=== PATIENT | female | born 1955 | race Caucasian/White ===

== ENCOUNTER 2024-01-17 19:48 | Inpatient (IN) | payer MEDICARE, SELFPAY ==
[2024-01-16 12:55] VITALS: BP 152/76
--- NOTE | 2024-01-16 14:06 | ED.GENMED ---
History of Present Illness
General
Chief Complaint: Skin Problem
Source: patient
Time Seen by Provider: 01/16/24 13:24
Travel History
Have you had any contact with someone who has COVID-19?: No
Do you have any symptoms of coronavirus? Fever > 100 degrees, chills, cough, shortness of breath, sore throat, loss of taste or smell, muscle aches, or headache?: No
History of Present Illness
History of Present Illness:
68-year-old female with past medical history of GERD presenting the emergency department for evaluation of left hand dog bite that occurred on Tuesday evening. Patient states this was her family dog who is up-to-date on vaccinations. Patient's
tetanus vaccine is up-to-date as well. She went to urgent care on Tuesday morning and was started on oral clindamycin. She saw her primary care provider today and was told that due to the worsening redness and swelling she should come to the ER for
IV antibiotics and admission. Patient denies any fevers, chills, rigors. She does note that despite 3 doses of the antibiotic she notes progressively worsening erythema and tracking up into her forearm. Patients tetanus is UTD
Past History
Past History
ED Past Medical History: GERD and Hyperthyroidism
ED Past Surgical History: Orthopedic and Other
Social History
Tobacco: Non-smoker
Alcohol: None
Drug: None
Personal:
Living: with family
Review of Systems
Review of Systems
All Other Systems: ROS reviewed and negative except as documented in HPI and ROS
Phy Exam
Physical Exam
Physical Exam:
GENERAL: Alert , in no apparent distress
EYE: conjunctiva clear
Head: Normocephalic atraumatic
NECK: Supple,
ENT: mmm.
LUNGS: no acute respiratory distress
NEUROLOGICAL: Alert and oriented
SKIN: Warm and dry, moderate left hand erythema that extends along the dorsal and palmar aspect of the hand which extends all the way into the mid forearm. Small puncture wounds on the dorsal aspect of the hand noted. No purulence. No crepitus.
MUSCULOSKELETAL: well perfused.
PSYCH: Normal and appropriate interaction.
Scores
Heart Failure Risk
Heart Failure Risk Score: Not Applicable
Heart Score for Chest Pain Patients
STEMI patient?: Not applicable
Withdrawal Assessment of Alcohol
Withdrawal Assessment Completed?: Not applicable
Course
Orders/Labs/Results
Orders:
Orders
01/16/24 13:30
CR Hand - Left Min 3 Views Urgent
Comment:
Reason For Exam: dog bite, infection
01/16/24 14:00
Complete Blood Count/With Diff Urgent
Comprehensive Metabolic Panel Urgent
Lactate Level [Lactic Acid] Q4H
Blood Culture Q30M
CYNDY Source: Blood/Venous
Specimen Description:
Blood Culture Q30M
CYNDY Source: Blood/Venous
Specimen Description:
01/16/24 14:18
Ampicillin/Sulbactam 3 G [Unasyn] 3 gm 0.9% Sodium Chloride 100 ml [Nss] 100 ml IV NOW
01/16/24 16:14
Admit/Transfer Patient As Directed
Co-Sign Provider:
Level of Care: Observation services
Assign to:: Medical/Surgical
Physician / Group: Dr. Syed Souza/Hospitalists
Diagnosis: Left Hand Cellulitis/Animal Bite
01/16/24 16:17
Code Status As Directed
Resuscitation Status: Full Code
01/16/24 16:19
MRSA Screen Routine
CYNDY Source: Nose
Specimen Description:
01/16/24 16:22
Neurovascular Checks As Directed
Location: All extremities
Frequency: q4h
01/16/24 17:15
Lactate Level [Lactic Acid] Q4H
01/16/24 18:00
Ampicillin/Sulbactam 3 G [Unasyn] 3 gm 0.9% Sodium Chloride 100 ml [Nss] 100 ml IV Q6H
Abnormal Lab Results
01/16/24
14:00
RBC 3.80 L 10^6/uL
(4.20-5.40)
Hct 35.0 L %
(37.0-47.0)
MCH 31.8 H pg
(27.0-31.0)
Absolute Lymphs (auto) 0.8 L 10^3/uL
(1.2-3.4)
Absolute Monos (auto) 0.7 H 10^3/uL
(0.1-0.6)
Neutrophils % 78.5 H %
(42.2-75.2)
Lymphocytes % 10.7 L %
(20.5-51.1)
BUN 25 H mg/dl
(7-17)
Glucose 104 H mg/dl
(70-99)
Alkaline Phosphatase 130 H U/L
(38-126)
01/16/24 14:00
01/16/24 14:00
Vital Signs
Initial and Last Documented VS:
Initial Vital Signs
Temp Pulse Resp BP Pulse Ox
99.0 F 74 16 152/76 98
01/16/24 12:55 01/16/24 12:55 01/16/24 12:55 01/16/24 12:55 01/16/24 12:55
Last Documented Vital Signs
Temp Pulse Resp BP Pulse Ox
99.0 F 74 16 152/76 98
01/16/24 12:55 01/16/24 12:55 01/16/24 12:55 01/16/24 12:55 01/16/24 12:55
MDM/Problems Addressed
Differential Diagnosis Includes:
Cellulitis secondary to dog bite, necrotizing fasciitis, abscess
MDM/Problems Addressed:
68-year-old female presenting the emergency department for evaluation of left hand infection secondary to dog bite from 2 days ago. Patient had been on clindamycin but not experiencing any improvement and states the erythema and pain are ascending
the left arm. Will start lab work, x-ray imaging and initiate IV Unasyn. Plan for admission. Patient may require ID consult.
*Radiology
Radiology exam reviewed: preliminary read by ED provider (No acute fracture or soft tissue gas)
*Pulse Oximetry
Patient hypoxic: no
*Critical Care Note
Total Time (30-74mins, 75-104mins- exclusive of procedures): Not Applicable
Patient Management
Discussion with other providers: Hospitalist
Escalation/DeEscalation of care consider admission/obs:
Hospitalist team is aware and accepts for continued evaluation and treatment of cellulitis secondary to dog bite
ED Attending Note
-
Portions of this chart may have been created with voice recognition software.� Occasional wrong word or��sound alike� substitutions may have occurred due to the inherent limitations of voice recognition software.
Discharge Plan
Departure
Patient Disposition: Admit
Date of Disposition: 01/16/24
Time of Disposition: 14:32
Presentation/result/management discussed w/ accepting MD/DO: Hospitalist
Discharge Problem:
Cellulitis of hand, left, Dog bite
[2024-01-16 14:13] LABS: % Basophils 0.4 % (0-2); % Eosinophils 1.8 % (0-6); % Immature Granulocytes 0.1 % (0-0.5); % Lymphocytes 10.7 % (20.5-51.1); % Monocytes 8.5 % (1.7-9.3); % Neutrophils 78.5 % (42.2-75.2); Absolute Eosinophils 0.1 10^3/uL (0-0.7); Absolute Lymphocytes 0.8 10^3/uL (1.2-3.4); Absolute Monocytes 0.7 10^3/uL (0.1-0.6); Hemoglobin 12.1 g/dL (12.0-16.0); Mean Corp Hgb Conc. 34.6 g/dL (33.0-37.0); Mean Corpuscular Hgb 31.8 pg (27.0-31.0); Mean Corpuscular Volume 92.1 fL (81.0-99.0); Mean Platelet Volume 10.2 fL (7.4-10.4); Nucleated Red Blood Cells % 0 %; Platelet Count 217 10^3/uL (130-400); Red Cell Dist. Width 13.3 % (11.5-14.5); White Blood Cell Count 7.7 10^3/uL (4.8-10.8)
[2024-01-16 14:29] LABS: ALT (SGPT) 29 U/L (0-35); AST (SGOT) 29 U/L (14-36); Albumin 4.4 g/dl (3.5-5.0); Alkaline Phosphatase 130 U/L (38-126); Blood Urea Nitrogen 25 mg/dl (7-17); Calcium 9.3 mg/dl (8.4-10.2); Carbon Dioxide 27 mmol/L (22-30); Chloride 101 mmol/L (98-107); Glucose 104 mg/dl (70-99); Potassium 4.2 mmol/L (3.5-5.1); Sodium 135 mmol/L (135-145); Total Bilirubin 0.5 mg/dl (0.2-1.3); Total Protein 7.1 g/dl (6.3-8.2); eGFR > 60.00
[2024-01-16 14:31] LABS: Lactic Acid 0.7 mmol/L (0.7-2.0)
[2024-01-16] MEDS: UNASYN IV ×2 (14:41→19:38)
[2024-01-16 16:39] VITALS: BMI 21.4
--- NOTE | 2024-01-16 16:50 | HPS.HSE ---
Family Physician
-
Family Physician: Guy Sears
Chief Complaint
-
Left Hand and Forearm Redness, Pain and Swelling
History of Present Illness
68 y/o female with past medical history of lung cancer (cured with surgery), Bronson's Disease, Raynaud's Phenomenon, Osteoarthritis and Osteoporosis, GERD presented with left hand worsening redness, pain and swelling. Patient said she got bit on
her left hand and left lower leg by her dog (the dog as confirmed by patient and her family is a family dog and that dog has been fully vaccinated according to them), very early Tuesday morning. She got a prescription for Clindamycin and noticed
possible improvement, but then symptoms got a whole lot worse and her PCP sent her to the ER. She denied any numbness and tingling to her left hand, but did say she has a hard time squeezing her fingers together. She denied any fever or any other
symptoms.
Medical History
Past Medical History
Past Medical History: Reports Other (As per HPI above)
Past Surgical History: Reports Orthopedic and Other (Lung Surgery)
Social History
Tobacco: Non-smoker
Alcohol: None
Drug: None
Family History
Family History: Not pertinent
Allergies / Home Medications
Allergies reflects when Allergies were last updated in [employer].
Home Medications with original date entered in [employer]
Allergy/Medication List:
Allergies
Allergy/AdvReac Type Severity Reaction Status Date / Time
duloxetine Allergy Unknown Verified 01/16/24 12:58
Home Medications
abaloparatide (Tymlos) 0 mcg SC HS 01/16/24
acyclovir 400 mg tablet 400 mg PO DAILY 01/16/24
bupropion HCl 300 mg 24 hr tablet, extended release 300 mg PO DAILY 01/16/24
cholecalciferol (vitamin D3) 50 mcg (2,000 unit) tablet (Vitamin D3) 50 mcg PO DAILY 01/16/24
clindamycin HCl 300 mg capsule 300 mg PO TID 01/16/24
estradiol 10 mcg vaginal tablet (Vagifem) 10 mcg vaginal .TWICE A WEEK 01/16/24
famotidine 20 mg tablet 40 mg PO HS 01/16/24
ibuprofen 200 mg tablet (Advil) 400 mg PO Q6HPRN PRN mild pain 01/16/24
latanoprost 0.005 % eye drops 1 drp BOTH EYES HS 01/16/24
levothyroxine 100 mcg tablet 100 mcg PO DAILY 01/16/24
vitamin B12 1,000 mcg-folic acid 400 mcg sublingual lozenge 1 erinn sublingual DAILY 01/16/24
Review of Systems
-
A 12 point ROS was completed and negative except as noted: Yes
Physical Exam
Vital Signs
Vital Signs
Temp Pulse Resp BP Pulse Ox
99.0 F 74 16 152/76 98
01/16/24 12:55 01/16/24 12:55 01/16/24 12:55 01/16/24 12:55 01/16/24 12:55
Physical Exam
General: No Apparent Distress
HEENT: NormoCephalic and Moist mucous membranes
Respiratory: Clear
Cardiac: S1/S2 and Regular Rhythm
GI: Soft, Non Tender and Normal Bowel Sounds
Musculoskeletal: No Cyanosis and Other (LUE: LT hand and LT forearm erythema and significant tenderness, no crepitus. LT digits decreased ability to flexion and extension due to pain. LT radial pulse 2+. LLE extremity with animal bite wounds.)
Skin: Warm
Neuro: Awake, Alert and AO x 3
Psych: Calm and Intact Judgment/Insight
Laboratory Results
-
01/16/24 14:00
01/16/24 14:00
Laboratory Results
Lactic Acid 0.7 mmol/L (0.7-2.0) 01/16/24 14:00
Total Bilirubin 0.5 mg/dl (0.2-1.3) 01/16/24 14:00
AST 29 U/L (14-36) 01/16/24 14:00
ALT 29 U/L (0-35) 01/16/24 14:00
Alkaline Phosphatase 130 U/L (38-126) H 01/16/24 14:00
Impression/Plan
-
Assessment/Plan
Left Upper Extremity (left hand and left forearm) Erythema and Tenderness
-Started PO antibiotics outpatient but symptoms got worse
-Continue IV Unasyn
-Follow blood cultures and MRSA results
-Elevate LUE above the heart
-Per ER Provider and patient and her family, patient's Tetanus shots are all up to date
-Continue Neurovascular Checks
History of lung cancer (cured with surgery)/groundglass lung lesion
Bronson's Disease
Raynaud's Phenomenon
Osteoarthritis
Osteoporosis
GERD - continue Famotidine
DVT PPx: Lovenox
Code Status: Full Code
[2024-01-16 17:07] VITALS: BMI 20.3
[2024-01-16 17:08] VITALS: BP 144/71
--- NOTE | 2024-01-16 18:04 | W.PN.UPDATE ---
Update Note
Progress Note Update
Pt seen and chart reviewed
Clinically I suspect cellulitis of the L hand only
I recommend elevation and IV antibx
Will follow with Hosp Service
thanks
GGMD
[2024-01-16] MEDS: LOVENOX 40 MG SC (18:13)
[2024-01-16] MEDS: MOTRIN 400 MG PO (19:38)
[2024-01-16 20:16] LABS: Lactic Acid 1.2 mmol/L (0.7-2.0)
[2024-01-16] MEDS: NON-FORMULARY ITEM 80 MCG SC (21:15)
[2024-01-16] MEDS: XALATAN OPHTHALMIC SOLUTION 1 DROP BOTH EYES (21:18)
[2024-01-16] MEDS: PEPCID 40 MG PO (21:18)
[2024-01-16 23:00] VITALS: BP 130/67
[2024-01-17] MEDS: UNASYN IV ×4 (01:00→20:03)
[2024-01-17 05:39] LABS: % Basophils 0.8 % (0-2); % Eosinophils 4.6 % (0-6); % Immature Granulocytes 0.2 % (0-0.5); % Lymphocytes 16.1 % (20.5-51.1); % Monocytes 10.6 % (1.7-9.3); % Neutrophils 67.7 % (42.2-75.2); Absolute Eosinophils 0.2 10^3/uL (0-0.7); Absolute Lymphocytes 0.8 10^3/uL (1.2-3.4); Absolute Monocytes 0.5 10^3/uL (0.1-0.6); Absolute Neutrophils 3.4 10^3/uL (1.4-6.5); Hematocrit 34.2 % (37.0-47.0); Mean Corp Hgb Conc. 35.1 g/dL (33.0-37.0); Mean Corpuscular Hgb 32.3 pg (27.0-31.0); Mean Corpuscular Volume 91.9 fL (81.0-99.0); Mean Platelet Volume 10.6 fL (7.4-10.4); Nucleated Red Blood Cells % 0 %; Platelet Count 202 10^3/uL (130-400); Red Blood Cell Count 3.72 10^6/uL (4.20-5.40); Red Cell Dist. Width 13.4 % (11.5-14.5)
[2024-01-17] MEDS: SYNTHROID 100 MCG PO (05:45)
[2024-01-17 06:25] LABS: Blood Urea Nitrogen 21 mg/dl (7-17); Calcium 9.6 mg/dl (8.4-10.2); Carbon Dioxide 23 mmol/L (22-30); Chloride 106 mmol/L (98-107); Estimated Creatinine Clearance 48 ml/min; Glucose 98 mg/dl (70-99); Sodium 137 mmol/L (135-145); eGFR > 60.00
[2024-01-17] MEDS: VITAMIN D3 (cholecalciferol) 50 MCG PO (07:24)
[2024-01-17] MEDS: ZOVIRAX 400 MG PO (07:24)
[2024-01-17] MEDS: WELLBUTRIN XL (24 hour extended release) 300 MG PO (07:24)
[2024-01-17] MEDS: VITAMIN B-12 1000 MCG PO (07:24)
[2024-01-17] MEDS: FOLVITE 0.400000000000000022 MG PO (07:24)
[2024-01-17 07:37] VITALS: BP 101/63
--- NOTE | 2024-01-17 09:30 | WOUNDNOTE ---
L PALM AND LOWER ARM
--- NOTE | 2024-01-17 09:31 | WOUNDNOTE ---
L DORSAL HAND AND LOWER ARM
--- NOTE | 2024-01-17 09:38 | WOUNDNOTE ---
MELONY RN note: Patient admitted with cellulitis of L hand from dog bite.
See H&P for complete history.
PMH:Bronson's thyroiditis, hip replacements knee replacement, lung and back surgery.
Wound Location and type/assessment: Patient admitted with: L hand and arm cellulitis and swelling from dog bite on dorsal hand. Bite shepard visible but no open wounds, skin warm. + radial pulse palpable. L lower leg with few bite shepard no swelling
or redness. X ray negative for fracture, reviewed ortho note. I&D on consult.
Appetite: Good.
Pressure redistribution devices in place: Accumax, Ad omari, L arm elevated.
Plan: Pictures taken, no wounds to dress. Will sign off unless needed.
[2024-01-17] MEDS: MOTRIN 400 MG PO ×2 (11:03→21:08)
--- NOTE | 2024-01-17 14:33 | CON.ID ---
Consultation
-
Date/Time Consultation Requested: January 16, 2024 1626
Date/Time Consultation Performed: January 17, 2024 1435
Requesting Provider: Dr. Syed Souza
Performing Provider: Dr. Nichol Schmidt
Reason for Consultation: Dog bite cellulitis
Chief Complaint / Past History
Chief Complaint
Dog bite
History of Present Illness
68-year-old female with remote history of lung cancer status resection on remission, Bronson's disease who accidentally stepped on her pet dog's paw and her dog bit her left hand and leg. This occurred on January 14. She went to urgent care
and was prescribed clindamycin for which she took 3 doses. However the redness from her pain continued to progress up to her forearm. Upon the recommendation of her PCP, she came to the ER yesterday. She is currently on Unasyn. She reports that
the redness is receding from her forearm. Swelling is better. She can now move her fingers better. She is up-to-date with her tetanus shot within the past 10 years. Her dog is up-to-date with his vaccines.
Past History
Additional Past Medical History:
Bronson's disease
Raynaud's
Osteoporosis
History of lung cancer s/p resection, on remission
Allergy History:
duloxetine Allergy (Verified 01/16/24 12:58)
Unknown
Medications Reviewed: Yes
Current Antibiotics:
Unasyn
Social History
Tobacco: Non-Smoker
Alcohol: None
Drug: None
Personal:
Family History
Family History: Not Pertinent
Review of Systems
Review of Systems
General: Negative Fever, Chills or Change in Appetite
HEENT: Negative Sinus Problems or Headache
Respiratory: Negative Dyspnea or Cough
Gasteroenterology: Other (no diarrhea); Negative Nausea or Vomiting
Genital / Urological: Negative Dysuria or Flank Pain
Endocrine: Negative Weakness
All systems: All other systems were reviewed and were negative
Vital Signs
Temp Pulse Resp BP Pulse Ox
98 F 66 16 101/63 98
01/17/24 07:37 01/17/24 07:37 01/17/24 07:37 01/17/24 07:37 01/17/24 07:37
Physical Exam
Physical Exam
Constitutional: No Acute Distress and Comfortable
Eyes: No Conjunctival Hemorrhage and Sclera Anicteric
Cardiovascular: Regular Rate and S1/S2
Pulmonary: Clear
Gastrointestinal: Soft, Non Tender, Non Distended and Normal Bowel Sounds
Extremities: Negative Edema (LE)
Wound: Other (Left hand: + puncture wounds radial side with erythema/edema dorsum of hand extending past wrist, streaky cellulitis on volar side of forearm. ROM at wrist and fingers intact. )
Neurological: AO x 3
Lab / Diagnostic Study Results
01/17/24 05:08
01/17/24 05:08
Abs Immat Gran (auto) 0.0 10^3/uL (0-0.05) 01/17/24 05:08
Absolute Neuts (auto) 3.4 10^3/uL (1.4-6.5) 01/17/24 05:08
Absolute Lymphs (auto) 0.8 10^3/uL (1.2-3.4) L 01/17/24 05:08
Absolute Monos (auto) 0.5 10^3/uL (0.1-0.6) 01/17/24 05:08
Absolute Basos (auto) 0.0 10^3/uL (0-0.2) 01/17/24 05:08
Immature Gran % 0.2 % (0-0.5) 01/17/24 05:08
Neutrophils % 67.7 % (42.2-75.2) 01/17/24 05:08
Lymphocytes % 16.1 % (20.5-51.1) L 01/17/24 05:08
Monocytes % 10.6 % (1.7-9.3) H 01/17/24 05:08
Eosinophils % 4.6 % (0-6) 01/17/24 05:08
Basophils % 0.8 % (0-2) 01/17/24 05:08
Lactic Acid 1.2 mmol/L (0.7-2.0) 01/16/24 19:54
Microbiology Results
Micro:
01/16/24 14:00 Blood Culture - Preliminary
Blood/Venous No Growth in 24 hours- Final report to follow
01/16/24 14:00 Blood Culture - Preliminary
Blood/Venous No Growth in 24 hours- Final report to follow
01/16/24 17:11 MRSA Screen - Pending
Nose
01/16/2024 left hand x-ray: Moderate first carpometacarpal joint osteoarthritis.
Assessment / Plan
# LUE cellulitis due to dog bite.
- up-to-date with tetanus vaccine.
-cellulitis improving on Unasyn
-At time of discharge, transition to Augmentin 875mg po bid through 01/25/24
--- NOTE | 2024-01-17 14:50 | W.PN.HOSP.TC ---
Today's Communication/Plan
-
Continue antibiotics
Patient's symptoms are improving
Appreciated Infectious Disease and Ortho consult recommendations
Assessment / Plan
Assessment / Plan
Physical Exam
General: No Apparent Distress
HEENT: Normocephalic and Moist mucous membranes
Respiratory: Clear
Cardiac: S1/S2 and Regular Rhythm
GI: Soft, Non Tender and Normal Bowel Sounds
Musculoskeletal: No Cyanosis and Other (LUE: LT hand and LT forearm erythema and tenderness. LT digits decreased ability to flexion and extension due to pain - IMPROVED. LT radial pulse 2+. LLE extremity with animal bite wounds.)
Skin: Warm
Neuro: Awake, Alert and AO x 3
Psych: Calm and Intact Judgment/Insight
Assessment/Plan
Left Upper Extremity (left hand and left forearm) Erythema and Tenderness
-Started PO antibiotics outpatient but symptoms got worse
-Continue IV Unasyn
-Follow blood cultures and MRSA results
-ID consulted, recommendations appreciated
-Elevate LUE above the heart
-Per ER Provider and patient and her family, patient's Tetanus shots are all up to date
-Continue Neurovascular Checks
History of lung cancer (cured with surgery)/groundglass lung lesion
Bronson's Disease
Raynaud's Phenomenon
Osteoarthritis
Osteoporosis
GERD - continue Famotidine
DVT PPx: Lovenox
Code Status: Full Code
Anticipated Discharge: Within 24 hours
Subjective/Interval History
-
Date of Service: January 17, 2024
Patient was seen and examined. She reported her left hand pain, redness and swelling have improved today.
Objective Data
-
Labs:
Laboratory Results
01/17/24
05:08
WBC 5.0
Hgb 12.0
Hct 34.2 L
Plt Count 202
Sodium 137
Potassium 4.0
Chloride 106
Carbon Dioxide 23
BUN 21 H
Creatinine 0.9
Glucose 98
Calcium 9.6
Vital Signs:
Vital Signs
Temp Pulse Resp BP Pulse Ox
98 F 66 16 101/63 98
01/17/24 07:37 01/17/24 07:37 01/17/24 07:37 01/17/24 07:37 01/17/24 07:37
I&O
01/16/24 01/17/24 01/18/24
06:59 06:59 06:59
Intake Total 720 / 720
Balance 720 / 720
[2024-01-17 15:10] VITALS: BP 130/69
--- NOTE | 2024-01-17 16:27 | CM ---
Alert awake oriented patient who lives with her Arian who lives in a 2 story home with 2 steps to enter 12 to bed/bathroom.She is independent in driving and in all activities of daily living.Offered VN she declined.
No adaptive devices
Never had VN/SNF
Pharmacy [facility]
PCP Dr Sears
PLAN Home declined VN
[2024-01-17] MEDS: LOVENOX 40 MG SC (17:11)
[2024-01-17] MEDS: PEPCID 40 MG PO (21:08)
[2024-01-17] MEDS: NON-FORMULARY ITEM 80 MCG SC (21:09)
[2024-01-17] MEDS: XALATAN OPHTHALMIC SOLUTION 1 DROP BOTH EYES (21:09)
[2024-01-17 23:00] VITALS: BP 121/62
[2024-01-18] MEDS: UNASYN IV ×2 (02:40→08:51)
[2024-01-18] MEDS: MOTRIN 400 MG PO ×2 (03:30→12:52)
[2024-01-18] MEDS: SYNTHROID 100 MCG PO (05:46)
[2024-01-18 06:13] LABS: % Basophils 0.7 % (0-2); % Eosinophils 1.8 % (0-6); % Immature Granulocytes 0.2 % (0-0.5); % Lymphocytes 7.5 % (20.5-51.1); % Monocytes 12.8 % (1.7-9.3); Absolute Eosinophils 0.1 10^3/uL (0-0.7); Absolute Lymphocytes 0.3 10^3/uL (1.2-3.4); Absolute Monocytes 0.6 10^3/uL (0.1-0.6); Absolute Neutrophils 3.4 10^3/uL (1.4-6.5); Hematocrit 33.5 % (37.0-47.0); Hemoglobin 11.5 g/dL (12.0-16.0); Mean Corp Hgb Conc. 34.3 g/dL (33.0-37.0); Mean Corpuscular Hgb 31.3 pg (27.0-31.0); Mean Corpuscular Volume 91.3 fL (81.0-99.0); Mean Platelet Volume 10.6 fL (7.4-10.4); Nucleated Red Blood Cells % 0 %; Platelet Count 192 10^3/uL (130-400); Red Blood Cell Count 3.67 10^6/uL (4.20-5.40); White Blood Cell Count 4.4 10^3/uL (4.8-10.8)
[2024-01-18 06:33] LABS: Blood Urea Nitrogen 19 mg/dl (7-17); Calcium 9.6 mg/dl (8.4-10.2); Carbon Dioxide 21 mmol/L (22-30); Chloride 103 mmol/L (98-107); Estimated Creatinine Clearance 54 ml/min; Glucose 100 mg/dl (70-99); Sodium 134 mmol/L (135-145); eGFR > 60.00
[2024-01-18 07:47] VITALS: BP 122/69
--- NOTE | 2024-01-18 08:03 | W.PN.UPDATE ---
Update Note
Progress Note Update
Marked improvement in L hand
OK for DC to home on po antibx
I will see again prn if any problems or concerns
No need for F/U with me at this time
thanks
GGMD
[2024-01-18] MEDS: VITAMIN D3 (cholecalciferol) 50 MCG PO (08:50)
[2024-01-18] MEDS: VITAMIN B-12 1000 MCG PO (08:50)
[2024-01-18] MEDS: ZOVIRAX 400 MG PO (08:50)
[2024-01-18] MEDS: WELLBUTRIN XL (24 hour extended release) 300 MG PO (08:50)
[2024-01-18] MEDS: FOLVITE 0.400000000000000022 MG PO (08:50)
--- NOTE | 2024-01-18 11:16 | W.PN.ID1 ---
Date of Service
Date of Service: January 18, 2024
Today's Communication
Can dc homr from ID standpoint.
See below.
Assessment / Plan
# LUE cellulitis due to dog bite.
- up-to-date with tetanus vaccine.
-cellulitis continues to on Unasyn
-Can transition to Augmentin 875mg po bid through 01/25/24
Chief Complaint
-: Cellulitis
Subjective / Review of Systems
hand continues to improve
Vital Signs / Physical Exam
Vital Signs
Vital Signs
Temp Pulse Resp BP Pulse Ox
98.1 F 68 16 122/69 100
01/18/24 07:47 01/18/24 07:47 01/18/24 07:47 01/18/24 07:47 01/18/24 07:47
Physical Exam
Constitutional: No Acute Distress and Comfortable
Gastrointestinal: Soft, Non Tender and Non Distended
Extremities: Other (left hand minimal edema, erythema resolving)
Neurological: AO x 3
Objective Data
Lab Data
Lab Results
01/18/24 05:20
01/18/24 05:20
Estimated Creat Clear 54 ml/min 01/18/24 05:20
Lactic Acid 1.2 mmol/L (0.7-2.0) 01/16/24 19:54
Total Bilirubin 0.5 mg/dl (0.2-1.3) 01/16/24 14:00
AST 29 U/L (14-36) 01/16/24 14:00
ALT 29 U/L (0-35) 01/16/24 14:00
Alkaline Phosphatase 130 U/L (38-126) H 01/16/24 14:00
Most recent labs reviewed.
Micro Results:
01/16/24 17:11 MRSA Screen - Final
Nose No Methicillin Resistant Staphylococcus aureus isolated.
01/16/24 14:00 Blood Culture - Preliminary
Blood/Venous No Growth in 24 hours- Final report to follow
01/16/24 14:00 Blood Culture - Preliminary
Blood/Venous No Growth in 24 hours- Final report to follow
01/16/2024 left hand x-ray: Moderate first carpometacarpal joint osteoarthritis.
Care Review
Plan reviewed with: Physician (Dr. Souza)
--- NOTE | 2024-01-18 11:22 | CM ---
entered order for discharge .
Spoke with pt she said her Arian will drive her home.
MD wrote a out pt PT script.
Pt said she will set up out pt PT near her at home .
PLAN Home no CM needs
--- NOTE | 2024-01-18 11:46 | PTOTSP ---
Received order for PT and reviewed chart. S/w RN who reports pt is dressed and is being discharged home. Visited pt in her room and she was doing yoga/stretches on other bed in hospital room, fully dressed in her own clothes. Pt denied any need for
PT. Will sign off.
--- NOTE | 2024-01-18 11:52 | W.PN.HOSP.TC ---
Today's Communication/Plan
-
Discharge today
Assessment / Plan
Assessment / Plan
Physical Exam
General: No Apparent Distress
HEENT: Normocephalic and Moist mucous membranes
Respiratory: Clear
Cardiac: S1/S2 and Regular Rhythm
GI: Soft, Non Tender and Normal Bowel Sounds
Musculoskeletal: No Cyanosis and Other (LUE: LT hand and LT forearm erythema and tenderness - IMPROVED. LT digits decreased ability to flexion and extension due to pain - IMPROVED. LT radial pulse 2+. LLE extremity with animal bite wounds.)
Skin: Warm
Neuro: Awake, Alert and AO x 3
Psych: Calm and Intact Judgment/Insight
Assessment/Plan
Left Upper Extremity (left hand and left forearm) Erythema and Tenderness
-Patient took outpatient PO antibiotics outpatient but symptoms got worse
-Continue IV Unasyn while inpatient
-Follow blood cultures and MRSA results
-ID consulted, recommendations appreciated
-Can transition to Augmentin 875mg PO bid through 01/25/24
-Elevate LUE above the heart
-Per ER Provider and patient and her family, patient's Tetanus shots are all up to date
-Continue Neurovascular Checks
History of lung cancer (cured with surgery)/ground-glass lung lesion
Bronson's Disease
Raynaud's Phenomenon
Osteoarthritis
Osteoporosis
GERD - continue Famotidine
DVT PPx: Lovenox
Code Status: Full Code
More than 30 minutes spent in discharge including
Final examination of the patient
Summarizing hospital stay
Instructions for continuing care to all relevant caregivers
Preparation of discharge records, prescriptions, and referral forms
Total time spent (in minutes): 36
Anticipated Discharge: Today
Subjective/Interval History
-
Date of Service: January 18, 2024
Patient was seen and examined. She reported that her left hand pain and swelling have improved significantly, and her left hand functioning has improved.
Objective Data
-
Labs:
Laboratory Results
01/18/24
05:20
WBC 4.4 L
Hgb 11.5 L
Hct 33.5 L
Plt Count 192
Sodium 134 L
Potassium 4.0
Chloride 103
Carbon Dioxide 21 L
BUN 19 H
Creatinine 0.8
Glucose 100 H
Calcium 9.6
Vital Signs:
Vital Signs
Temp Pulse Resp BP Pulse Ox
98.1 F 68 16 122/69 100
01/18/24 07:47 01/18/24 07:47 01/18/24 07:47 01/18/24 07:47 01/18/24 07:47
I&O
01/17/24 01/18/24 01/19/24
06:59 06:59 06:59
Intake Total 720 / 720 1500 / 1500
Balance 720 / 720 1500 / 1500
--- NOTE | 2024-01-18 12:37 | W.DS.TRANS ---
DC Summary - Environmental Research Scientist
-
Discharge Instructions:
Discharge Diagnosis/Procedures Left Upper Extremity cellulitis due to dog bite
History of lung cancer (cured with surgery)/
ground-glass lung lesion
Bronson's Disease
Raynaud's Phenomenon
Osteoarthritis
Osteoporosis
Gastroesophageal Reflux Disease
Diet Low Fat,Low Cholesterol
Activity As tolerated
Blood Work CBC (with differential) and BMP with your
outpatient primary care provider's office in the
next 2 days
Other Services PT,OT
Instructions:
Stand-Alone Forms:
Changes to Home Medications: Yes
Discharge Medications:
DC Medications w/original date entered in [employer]
abaloparatide (Tymlos) 0 mcg SC HS Osteoporosis 01/16/24
acyclovir 400 mg tablet 400 mg PO DAILY viral prophylaxis 01/16/24
bupropion HCl 300 mg 24 hr tablet, extended release 300 mg PO DAILY mental health 01/16/24
cholecalciferol (vitamin D3) 50 mcg (2,000 unit) tablet (Vitamin D3) 50 mcg PO DAILY Supplement 01/16/24
estradiol 10 mcg vaginal tablet (Vagifem) 10 mcg vaginal .TWICE A WEEK Hormonal Agent 01/16/24
famotidine 20 mg tablet 40 mg PO HS Gastrointestinal Issue 01/16/24
ibuprofen 200 mg tablet (Advil) 400 mg PO Q6HPRN PRN mild pain 01/16/24
latanoprost 0.005 % eye drops 1 drp BOTH EYES HS Eye Condition 01/16/24
levothyroxine 100 mcg tablet 100 mcg PO DAILY Thyroid 01/16/24
vitamin B12 1,000 mcg-folic acid 400 mcg sublingual lozenge 1 erinn sublingual DAILY Supplement 01/16/24
amoxicillin 875 mg-potassium clavulanate 125 mg tablet 1 tab PO BID #15 tabs 01/18/24
Home Medication Changes
Amoxicillin-Pot Clavulanate is new medication.
Clindamycin has been stopped.
Pending Results: Yes (Final results of blood cultures from hospitalization)
Total time spent discharging patient (in min): 36
--- NOTE | 2024-01-20 18:30 | W.DCSUMMARY ---
Discharge Summary
Discharge Data
Date of Admission: 01/17/24
Date of Discharge: 01/18/24
Total time spent discharging patient (in min): 36
-
Pending Results: Yes
Additional Pending Results:
Final results of blood cultures from hospitalization
Hospital Course
68 y/o female with past medical history of lung cancer (cured with surgery), Bronson's Disease, Raynaud's Phenomenon, Osteoarthritis and Osteoporosis, GERD presented with left hand worsening redness, pain and swelling. Patient said she got bit on
her left hand and left lower leg by her dog (the dog as confirmed by patient and her family is a family dog and that dog has been fully vaccinated according to them). She got a prescription for Clindamycin and noticed possible improvement, but then
symptoms got a whole lot worse and her PCP sent her to the ER. She denied any numbness and tingling to her left hand, but did say she had been having a hard time squeezing her fingers together. She denied any fever or any other symptoms.
Patient was started on Unasyn antibiotics. Orthopedics and Infectious Disease were consulted. Patient's symptoms improved significantly with antibiotics and she was stable for discharge.
Discharge Plan
-
Patient Disposition: Home (Routine Discharge)
Discharge Diagnosis/Procedures: Left Upper Extremity cellulitis due to dog bite
History of lung cancer (cured with surgery)/ground-glass lung lesion
Bronson's Disease
Raynaud's Phenomenon
Osteoarthritis
Osteoporosis
Gastroesophageal Reflux Disease
Condition: Good
Diet: Low Fat and Low Cholesterol
Activity: As tolerated
Blood Work: CBC (with differential) and BMP with your outpatient primary care provider's office in the next 2 days
Other Services: PT and OT
Referrals:
Guy Sears MD [Family Provider] - in one to two days (CBC (with differential) and BMP check by 01/20/24)
Additional Discharge Medication Instructions: Amoxicillin-Pot Clavulanate is new medication.
Clindamycin has been stopped.
Prescriptions:
New
amoxicillin-pot clavulanate 875-125 mg tablet
1 tab PO BID Qty: 15 0RF
Continued
latanoprost 0.005 % Drops
1 drp BOTH EYES HS
acyclovir 400 mg Tablet
400 mg PO DAILY
levothyroxine 100 mcg Tablet
100 mcg PO DAILY
famotidine 20 mg Tablet
40 mg PO HS
ibuprofen [Advil] 200 mg Tablet
400 mg PO Q6HPRN PRN (Reason: mild pain)
bupropion HCl 300 mg Tablet Extended Release 24 Hr
300 mg PO DAILY
cholecalciferol (vitamin D3) [Vitamin D3] 50 mcg (2,000 unit) Tablet
50 mcg PO DAILY
estradiol [Vagifem] 10 mcg Tablet
10 mcg VAGINAL .TWICE A WEEK
vitamin M38-hpfdy acid 1,000-400 mcg Lozenge
1 erinn SUBLINGUAL DAILY
Tymlos 80 mcg (3,120 mcg/1.56 mL) Pen Injector
0 mcg SC HS
Discontinued
clindamycin HCl 300 mg Capsule
300 mg PO TID
Discharge Orders:
Discharge Patient (As Directed); Ordered 01/18/24
Ordered By: Syed Souza
Discharge Date and Time
Discharge Date/Time: 01/18/24 13:03
Print Language: [id number]
== END 2024-01-18 13:03 | disposition home or self-care (01) | DRG 603 ==
LOC: 3 WEST ACU 19:48
PROVIDERS: ADMITTING PHYSICIAN Hospitalist; CONSULT PHYSICIAN Orthopaedic Surgery Hand Surgery; EMERGENCY PHYSICIAN Emergency Medicine; FAMILY PHYSICIAN Internal Medicine; OTHER PHYSICIAN Internal Medicine Infectious Disease
DX: L03.114 Cellulitis of left upper limb (principal)
CPT/HCPCS: 73130; 80048; 80053; 83605; 85025; 87040; 87070; 96365; 99285